=== PATIENT | male | born 1950 | race Caucasian/White ===

== ENCOUNTER 2022-02-20 15:29 | Inpatient (IN) ==
[2022-02-20] MEDS ORDERED: Ondansetron 4 MG/2 ML VIAL IVP PRN (17:30)
[2022-02-20] MEDS ORDERED: Naloxone 0.4 MG/ML INJ IVP PRN (17:30)
[2022-02-20] MEDS: Piperacillin/Tazobactam 3.375 GM in 0.9 % Sodium Chloride Mini Bag 100 ML IVPB SCH (18:37)
[2022-02-20] MEDS: 0.9 % Sodium Chloride 1,000 ML IVC SCH (18:37)
[2022-02-20] MEDS ORDERED: Acetaminophen IV 1,000 MG/100 ML BAG IVPB SCH (18:41)
[2022-02-20] MEDS: Ketorolac 30 MG/ML VIAL IVP SCH (18:52)
[2022-02-21] MEDS ORDERED: Acetaminophen IV 1,000 MG/100 ML BAG IVPB SCH
[2022-02-21] MEDS ORDERED: Ketorolac 30 MG/ML VIAL IVP SCH
[2022-02-21] MEDS: Ketorolac 30 MG/ML VIAL IVP SCH ×2 (01:06→06:13)
[2022-02-21] MEDS: Piperacillin/Tazobactam 3.375 GM in 0.9 % Sodium Chloride Mini Bag 100 ML IVPB SCH ×3 (01:07→16:56)
[2022-02-21] MEDS: Acetaminophen IV 1,000 MG/100 ML BAG IVPB SCH ×2 (03:38→12:34)
[2022-02-21 06:09] LABS: Basophils # 0.1 K/mcL (0.0-0.2); Basophils % 0.4 %; Eosinophils # 0.2 K/mcL (0.0-0.6); Eosinophils % 1.4 %; Hematocrit 39.7 % (37.5-50.1); Hemoglobin 12.8 g/dL (12.9-16.9); Immature Granulocytes % 0.5 % (0-4); Lymphocytes % 16.7 %; Mean Corpuscular HGB Conc 32.2 g/dL (31.6-35.5); Mean Corpuscular Hemoglobin 27.5 pg (28.0-33.3); Mean Corpuscular Volume 85.4 fL (83.0-100.0); Mean Platelet Volume 9.8 fL (9.4-12.4); Monocytes # 1.1 K/mcL (0.0-1.3); Monocytes % 9.2 %; Neutrophils # 8.5 K/mcL (1.6-8.9); Platelet Count 364 K/mcL (140-400); Red Blood Count 4.65 M/mcL (4.19-5.50); Red Cell Distribution Width 14.5 % (11.5-14.5); Segmented Neutrophils % 71.8 %; White Blood Count 11.8 K/mcL (4.3-11.1)
[2022-02-21] MEDS: 0.9 % Sodium Chloride 1,000 ML IVC SCH (06:14)
[2022-02-21 06:24] LABS: Alanine Aminotransferase 9 Units/L (7-52); Albumin 3.3 g/dL (3.5-5.7); Albumin/Globulin Ratio 1.2 (1.1-2.2); Alkaline Phosphatase 57 Units/L (34-104); Aspartate Amino Transferase 14 Units/L (13-39); BUN/Creatinine Ratio 20 (6-26); Bilirubin,Direct 0.1 mg/dL (0.0-0.2); Bilirubin,Indirect 0.5 mg/dL (0.0-1.0); Bilirubin,Total 0.6 mg/dL (0.3-1.0); Blood Urea Nitrogen 18 mg/dL (8-23); Calcium 8.8 mg/dL (8.6-10.3); Carbon Dioxide 25 mEq/L (23-29); Chloride 106 mEq/L (98-107); Globulin 2.7 g/dL (2.4-3.5); Glucose 103 mg/dL (70-105); Osmolality,Calculated 286 (280-300); Phosphorous 3.1 mg/dL (2.7-4.5); Potassium 3.8 mEq/L (3.5-5.1); Sodium 137 mEq/L (136-145)
[2022-02-21] MEDS ORDERED: *HR* Enoxaparin 40 MG/0.4 ML SYRINGE SQ SCH (07:00)
[2022-02-21] MEDS: Pantoprazole 40 MG VIAL IVP SCH ×2 (08:35→18:31)
[2022-02-22] MEDS: Piperacillin/Tazobactam 3.375 GM in 0.9 % Sodium Chloride Mini Bag 100 ML IVPB SCH ×3 (00:02→16:59)
[2022-02-22] MEDS: Pantoprazole 40 MG VIAL IVP SCH ×2 (05:19→19:28)
[2022-02-22 06:25] LABS: Basophils # 0.1 K/mcL (0.0-0.2); Basophils % 0.7 %; Eosinophils # 0.3 K/mcL (0.0-0.6); Eosinophils % 2.6 %; Hematocrit 38.9 % (37.5-50.1); Hemoglobin 12.6 g/dL (12.9-16.9); Immature Granulocytes % 0.4 % (0-4); Lymphocytes # 2.3 K/mcL (0.6-4.6); Lymphocytes % 22.1 %; Mean Corpuscular HGB Conc 32.4 g/dL (31.6-35.5); Mean Corpuscular Hemoglobin 27.9 pg (28.0-33.3); Mean Corpuscular Volume 86.3 fL (83.0-100.0); Mean Platelet Volume 9.9 fL (9.4-12.4); Monocytes # 0.8 K/mcL (0.0-1.3); Monocytes % 7.4 %; Neutrophils # 6.8 K/mcL (1.6-8.9); Platelet Count 311 K/mcL (140-400); Red Blood Count 4.51 M/mcL (4.19-5.50); Red Cell Distribution Width 14.5 % (11.5-14.5); Segmented Neutrophils % 66.8 %; White Blood Count 10.2 K/mcL (4.3-11.1)
[2022-02-22 06:44] LABS: Calcium 8.3 mg/dL (8.6-10.3); Magnesium 1.9 mg/dL (1.6-2.6); Potassium 3.6 mEq/L (3.5-5.1)
[2022-02-22] MEDS ORDERED: Acetaminophen 325 MG TABLET PO PRN (15:01)
[2022-02-23] MEDS: Piperacillin/Tazobactam 3.375 GM in 0.9 % Sodium Chloride Mini Bag 100 ML IVPB SCH ×2 (00:05→09:26)
[2022-02-23 04:03] LABS: Basophils % 0.5 %; Eosinophils # 0.3 K/mcL (0.0-0.6); Eosinophils % 4.5 %; Hematocrit 37.6 % (37.5-50.1); Hemoglobin 12.2 g/dL (12.9-16.9); Immature Granulocytes % 0.5 % (0-4); Lymphocytes # 2.4 K/mcL (0.6-4.6); Lymphocytes % 32.2 %; Mean Corpuscular HGB Conc 32.4 g/dL (31.6-35.5); Mean Corpuscular Hemoglobin 28.4 pg (28.0-33.3); Mean Corpuscular Volume 87.4 fL (83.0-100.0); Mean Platelet Volume 10.1 fL (9.4-12.4); Monocytes # 0.8 K/mcL (0.0-1.3); Monocytes % 10.4 %; Neutrophils # 3.9 K/mcL (1.6-8.9); Platelet Count 281 K/mcL (140-400); Red Cell Distribution Width 14.4 % (11.5-14.5); Segmented Neutrophils % 51.9 %; White Blood Count 7.5 K/mcL (4.3-11.1)
[2022-02-23 04:21] LABS: BUN/Creatinine Ratio 20 (6-26); Blood Urea Nitrogen 17 mg/dL (8-23); Calcium 8.4 mg/dL (8.6-10.3); Carbon Dioxide 25 mEq/L (23-29); Chloride 108 mEq/L (98-107); Glucose 104 mg/dL (70-105); Magnesium 1.8 mg/dL (1.6-2.6); Osmolality,Calculated 286 (280-300); Potassium 3.8 mEq/L (3.5-5.1); Sodium 137 mEq/L (136-145)
[2022-02-23] MEDS: Pantoprazole 40 MG VIAL IVP SCH (05:21)
[2022-02-23 10:41] VITALS: BP 121/60; PULSE 58; TEMP 97.5; O2SAT 96
[2022-02-23] MEDS ORDERED: Nicotine 21 MG PATCH.TD24 TD SCH (15:15)
== END 2022-02-23 16:51 | disposition home or self-care (01) | DRG 394 ==
LOC: 3ANU → SUATTDRO 17:00
PROVIDERS: ADMIT Pharmacist; ATTEND Pharmacist